=== PATIENT | male | born 1965 | race Hispanic/Latino ===

== ENCOUNTER 2019-03-15 04:04 | Inpatient (IN) | payer OTHER ==
[~2019-03-15] VITALS: Ht 165.1 cm; Wt 71.2 kg
[2019-03-15] MEDS ORDERED: SODIUM CHLORIDE 0.9% 1000ML 1,000 ML IV ONE ×2 (05:15→08:25)
[2019-03-15 05:24] LABS: BASOPHILS % (AUTO) 0.4 % (0.0-5.0); EOSINOPHILS % (AUTO) 0.1 % (0.0-8.0); HEMATOCRIT 22.6 % (42-54); LYMPHOCYTES % (AUTO) 41.2 % (21.0-51.0); MEAN CORPUSCULAR HGB CONC 35.2 g/dL (32.0-36.0); MEAN CORPUSCULAR VOLUME 88.2 fL (79-99); MONOCYTES % (AUTO) 4.2 % (3.0-13.0); NEUTROPHILS % (AUTO) 54.1 % (40.0-77.0); NUCLEATED RED BLOOD CELLS 0.1 % (0.0-0.19); PLATELET COUNT (AUTO) 399 K/uL (130-400); RED BLOOD CELL COUNT(AUTO) 2.56 MIL/uL (4.50-6.20); RED CELL DISTRIBUTION WIDTH 18.1 % (11.0-15.5); WHITE BLOOD COUNT (AUTO) 6.6 K/uL (4.8-10.8)
[2019-03-15 05:37] LABS: CREATININE 1.1 mg/dL (0.5-1.5); POTASSIUM 3.7 mmol/L (3.5-5.1)
[2019-03-15 05:39] LABS: INR 1.04 (0.85-1.15); PARTIAL THROMBOPLASTIN TIME 35.1 SEC (26.3-35.5); PROTHROMBIN TIME 10.9 SEC (9.6-11.6)
[2019-03-15 05:50] LABS: BILIRUBIN,TOTAL 13.5 mg/dL (0.2-1.0); TOTAL PROTEIN, SERUM 5.6 g/dL (6.0-8.3)
[2019-03-15] MEDS: SODIUM CHLORIDE 0.9% 1000ML 1,000 ML IV SCH ×2 (06:44→16:44)
[2019-03-15] MEDS ORDERED: FAMOTIDINE/PF 20 MG/2 ML VIAL IV ONE (08:25)
[2019-03-15] MEDS: FAMOTIDINE/PF 20 MG/2 ML VIAL IV SCH ×2 (09:00→19:56)
[2019-03-15 10:20] LABS: BILIRUBIN,TOTAL 11.1 mg/dL (0.2-1.0)
[2019-03-15 10:42] LABS: ALBUMIN 0.8 g/dL (3.5-5.0); TOTAL PROTEIN, SERUM 4.6 g/dL (6.0-8.3)
[2019-03-15 10:50] LABS: BILIRUBIN,DIRECT 9.7 mg/dL (0.0-0.3)
[2019-03-15 11:52] LABS: % IRON SATURATION 24.5 % (30-44)
[2019-03-15 12:07] LABS: HEMATOCRIT 20.5 % (42-54)
[2019-03-15 12:20] VITALS: BP 123/74
[2019-03-15] MEDS ORDERED: GADODIAMIDE 5 MMOL/10 ML VIAL 5 MMOL/10 ML VIAL IV ONE (12:43)
--- NOTE | 2019-03-15 13:00 | NUR ---
NOTE ARRIVED FROM ER WITH DX CIRRHOSIS, GI BLEED. HIS HGB HAS DROPPED TO 7 AND SOON PATIENT GOT HERE THERE WAS AN ORDER FOR BLOOD TRANSFUSION, WE WILL GET RECORDS FROM [place] AND CONSULTS WITH DR SHAHID HAS BEEN CARRIED OUT. PATIENT JAUNDICE. HE IS POSITIVE FOR HIV. WAS AT A HOSPITAL IN [place] FOR >20 DAYS, WAS DISCHARGED HOME SATURDAY WITH 4 PRESCRIPTIONS AND FAMILY WAS NOT ABLE TO FILL OUT HE CAME IN BECAUSE HE STARTED HAVING BLOODY STOOLS AT HOME FEELS VERY WEAK. FAMILY AT HIS SIDE. NO N/V NO DISTRESS, HE DOES HAVE A LITTLE OF A DRY COUGH BUT CXR IS NEGATIVE AND DOES NOT SEEM IN DISTRESS OTHERWISE. HE HAS NOT BEEN TAKING HIS HIV OR ANY MED FOR THE SAME TOKEN FOR THE LAST 2-3 YEARS.
[2019-03-15] MEDS ORDERED: ATOV750O2 PO (14:01)
[2019-03-15] MEDS ORDERED: AZIT500T PO (14:01)
[2019-03-15] MEDS ORDERED: CEFP200T14 PO (14:01)
[2019-03-15] MEDS ORDERED: PANT40TA25 PO (14:01)
[2019-03-15] MEDS ORDERED: SODIUM CHLORIDE 0.9% 250 ML IV ONE (15:52)
[2019-03-15 16:00] VITALS: BP 108/67
--- NOTE | 2019-03-15 16:45 | NUR ---
NOTE STARTED FIRST OF 2 UNITS OF BLOOD ORDERED PER DR OLIVAS. HE IS TOLERATING WELL REFER TO TRANSFUSION SHEET FOR DETAILS.
[2019-03-15 19:15] VITALS: BP 139/86
[2019-03-15 20:00] VITALS: BP 116/76
[2019-03-15 21:15] VITALS: BP 133/85
[2019-03-16] VITALS (7 sets, daily range): BP systolic 100–120; BP diastolic 65–77
[2019-03-16 01:58] LABS: HEMATOCRIT 25.5 % (42-54)
[2019-03-16] MEDS: SODIUM CHLORIDE 0.9% 1000ML 1,000 ML IV SCH ×3 (02:44→21:35)
[2019-03-16] MEDS: FAMOTIDINE/PF 20 MG/2 ML VIAL IV SCH ×2 (09:05→21:34)
--- NOTE | 2019-03-16 11:35 | NUR ---
INITIAL: Met w pt and mother this am to discuss dcp. Pt states that he recently moved from [place] to [facility] and has not established himself w a pcp. Pt states that he is currently living w his mother. He is independent w ambulation and ADLs. Does not own any equipment. Per pt he was previously receiving medical care from Dr Edwin Resendiz in [place] and would obtain meds via [employer] [phone]. He states that dt his HIV he was enrolled in a program to assist w meds and medical coverage. He states that he is trying to see if those services will still be avail to him now that he has moved to the [place]. Provided him w low income packet and also provided him w contact number for [facility]. CM to continue to follow and wait for Md recommendations. Per pt he feels safe and comfortable to return to his mothers house @ [place]. Addendum: 03/16/19 at 1139 by JENI LEIGH Amended: Links added.
--- NOTE | 2019-03-16 12:15 | NUR ---
RD Notification Patient with rectal bleed, s/p Blood transfusion, pending colonoscopy. Patient NPO pending procedure. When medically feasible, rec to advance diet to Heart Healthy, Soft diet, Christiano BID (secondary to wound healing support). Noted BLE 3+ pitting edema. Patient LBM 03/16/19. Patient monitored labs:Na 130, Cl 100, Ca 7.4, Fe 38, TIBC 155, %sat 24.5, T.Bili 11.1, AST 147, ALT 153, Alk 2862, Alb 0.8. RD to continue to monitor. Please notify RD as nutritional concerns arise. Thank you. Addendum: 03/16/19 at [address] Amended: Links added.
[2019-03-16 13:40] LABS: HEMATOCRIT 21.7 % (42-54)
[2019-03-16] MEDS: FLUCONAZOLE 100 MG TAB PO SCH (14:40)
[2019-03-16 19:36] LABS: HEMATOCRIT 20.3 % (42-54)
--- NOTE | 2019-03-16 22:11 | NUR ---
PENIS PATIENT COMPLAINS OF POSSIBLE INFECTION TO HIS PENIS. ON INSPECTION HE SEEMS TO HAVE A YEAST INFECTION AND SOME SWELLING TO THE AREA, WHICH HE STATES IS BETTER THAN BEFORE. PATIENT IS ON AN ANTIFUNGAL MEDICATION IV AT THIS TIME. WILL NOTIFY MD AT NEXT TIME THEY ROUND.
[2019-03-17 03:46] VITALS: BP 116/69
[2019-03-17 04:16] LABS: BASOPHILS % (AUTO) 0.9 % (0.0-5.0); EOSINOPHILS % (AUTO) 0.1 % (0.0-8.0); LYMPHOCYTES % (AUTO) 23.7 % (21.0-51.0); MEAN CORPUSCULAR HEMOGLOBIN 30.6 pg (27.0-33.0); MEAN CORPUSCULAR HGB CONC 35.2 g/dL (32.0-36.0); MEAN CORPUSCULAR VOLUME 86.8 fL (79-99); MONOCYTES % (AUTO) 6.2 % (3.0-13.0); NEUTROPHILS % (AUTO) 69.1 % (40.0-77.0); NUCLEATED RED BLOOD CELLS 0.1 % (0.0-0.19); PLATELET COUNT (AUTO) 310 K/uL (130-400); RED BLOOD CELL COUNT(AUTO) 2.28 MIL/uL (4.50-6.20); RED CELL DISTRIBUTION WIDTH 16.9 % (11.0-15.5); WHITE BLOOD COUNT (AUTO) 4.9 K/uL (4.8-10.8)
[2019-03-17 04:19] LABS: HEMATOCRIT 19.8 % (42-54)
[2019-03-17 04:26] LABS: POTASSIUM 3.3 mmol/L (3.5-5.1)
[2019-03-17] MEDS ORDERED: SODIUM CHLORIDE 0.9% 250 ML IV ONE (06:21)
[2019-03-17] MEDS ORDERED: POTASSIUM CHLORIDE 10MEQ/100ML 100 ML IV PRN (06:30)
[2019-03-17] MEDS ORDERED: POTASSIUM CHLORIDE 20 MEQ ERTAB PO PRN (06:30)
[2019-03-17] MEDS ORDERED: LIDOCAINE HCL-MPF 1% 2ML VIAL IVP PRN (06:30)
[2019-03-17 07:00] VITALS: BP 114/90
[2019-03-17] MEDS: SODIUM CHLORIDE 0.9% 1000ML 1,000 ML IV SCH ×2 (08:16→18:44)
[2019-03-17] MEDS: FAMOTIDINE/PF 20 MG/2 ML VIAL IV SCH ×2 (08:16→19:34)
[2019-03-17] MEDS ORDERED: FUROSEMIDE 10 MG/ML 2ML VIAL IV SCH ×2 (09:30→11:00)
--- NOTE | 2019-03-17 11:28 | NUR ---
INFO ON [facility] GIVEN Met hien burrell, confirmed pt is jan of [facility] in [place] info on [facility] plan ois to set up appt on discharge for patient, verbal consent [place] [facility] [facility] [place]. CM to follow Addendum: 03/17/19 at 1141 by REGGIE DUTTON RN CM Amended: Links added.
[2019-03-17 11:49] VITALS: BP 123/84
[2019-03-17] MEDS: FLUCONAZOLE 100 MG TAB PO SCH (13:49)
[2019-03-17 14:15] LABS: HEMATOCRIT 32.5 % (42-54)
[2019-03-17 16:40] VITALS: BP 131/89
--- NOTE | 2019-03-17 17:42 | NUR ---
[facility] CONSULT PATIENT ASSESSED ORDERED: PATIENT PRESENTS WITH STAGE II PRESSURE ULCER TO COCCYX; [facility] RECOMMENDATIONS SUBMITTED. Addendum: 03/17/19 at 1745 by CESAR HURTADO LVN LVN W Amended: Links added.
[2019-03-17 19:42] VITALS: BP 140/85
[2019-03-17 20:14] LABS: HEMATOCRIT 28.5 % (42-54)
[2019-03-18] VITALS: BP 103/57
[2019-03-18 04:00] VITALS: BP 117/74
[2019-03-18] MEDS: SODIUM CHLORIDE 0.9% 1000ML 1,000 ML IV SCH (04:02)
[2019-03-18 07:06] LABS: HEMATOCRIT 28.4 % (42-54)
[2019-03-18 07:30] VITALS: BP 116/67
[2019-03-18] MEDS ORDERED: HONEY 1 APPL/ML TUBE TP PRN (08:45)
[2019-03-18] MEDS: FAMOTIDINE/PF 20 MG/2 ML VIAL IV SCH ×2 (09:05→21:20)
--- NOTE | 2019-03-18 10:40 | NUR ---
RECORD RECEIVED AND DR. SHAHID MADE AWARE OF PENDING RECORDS FROM [facility] IN [place]. PER MD, WILL COME IN AND REVIEW RECORD.
[2019-03-18 11:00] VITALS: BP 120/82
[2019-03-18 12:18] LABS: HEMATOCRIT 31.3 % (42-54)
[2019-03-18 13:14] LABS: HEPATITIS B CORE IGM Negative (Negative)
[2019-03-18] MEDS ORDERED: SULFAMETHOX-TMP DS 800/160 TAB PO SCH (14:30)
--- NOTE | 2019-03-18 14:39 | NUR ---
RD Follow up Note Patient tolerating clear liquid diet, pending procedure. RD recommend Christiano BID for wound healing support for Coccyx stg. 2 decubitus ulcer. Noted, patient with 3+ pitting edema. Patient monitored labs: Na 133, K 3.3, CO2 19, Ca 7.2, Fe 38, TIBC 155, %Sat 24.5, Alb 0.8. RD to continue to monitor. Please notify RD as nutritional concerns arise. Thank you. Addendum: 03/18/19 at [address] Amended: Links added.
[2019-03-18] MEDS ORDERED: PHARMACY COMMUNICATION MISC SCH (14:45)
[2019-03-18 16:00] VITALS: BP 122/79
[2019-03-18] MEDS: FLUCONAZOLE 100 MG TAB PO SCH (16:49)
[2019-03-18 18:24] LABS: HEMATOCRIT 29.4 % (42-54)
[2019-03-18 20:35] VITALS: BP 128/83
[2019-03-19] VITALS (40 sets, daily range): BP systolic 84–132; BP diastolic 47–79
[2019-03-19 02:46] LABS: HEMATOCRIT 23.4 % (42-54)
[2019-03-19 06:38] LABS: HEMATOCRIT 22.4 % (42-54)
[2019-03-19] MEDS: FAMOTIDINE/PF 20 MG/2 ML VIAL IV SCH ×2 (08:16→21:00)
[2019-03-19] MEDS: SULFAMETHOX-TMP DS 800/160 TAB PO SCH (08:17)
--- NOTE | 2019-03-19 08:26 | NUR ---
LOW BP/LARGE RED LIQUID STOOL BP NOTED TO BE 95/75 WITH PULSE OF 102. PATIENT AAOX3, STATES DIZZINESS AND WEAKNESS. NOTED PALE JAUNDICE SKIN COLOR. PT HAD LARGE BRIGHT RED LIQUID STOOL. VIKY CHAVARRIA FACETER MADE AWARE; INITIATED 500ML NS BOLUS. WILL TRANSFUSE 1 UNIT OF PRBC AND TRANSFER TO ICU ORDERED.
[2019-03-19] MEDS ORDERED: SODIUM CHLORIDE 0.9% 250 ML IV ONE ×2 (08:29→16:21)
[2019-03-19] MEDS: FLUCONAZOLE 100 MG TAB PO SCH (14:30)
[2019-03-19 14:39] LABS: HEMATOCRIT 20.3 % (42-54)
[2019-03-19] MEDS ORDERED: PEG 3350/NA SULF,BICARB,CL/KCL 4000 ML SOLN PO SCH (17:00)
--- NOTE | 2019-03-19 18:04 | NUR ---
PT HAS HAD AT LEAST 9 STOOLS OF CLOTS OR BLOOD AND V/S DOCUMENTED. DR. SHAHID AND DR. KIM HAVE DISCUSSED THE CASE AND DR. KIM HAS SPOKEN TO PATIENT AND FAMILY MEMBERS (MOTHER AND SISTER) AND ADVISED THEM OF CODE STATUS. PT WAS DNR IN [place] AND DR. KIM WANTS TO INQUIRE IF PT WANTS DNR OR FULL CODE STATUS.
--- NOTE | 2019-03-19 19:00 | NUR ---
DR. SHAHID HERE AND SPOKE WITH PATIENT AND FAMILY IN THE ROOM ABOUT THE PLAN OF CARE.
--- NOTE | 2019-03-19 19:40 | NUR ---
REPORT REPORT GIVEN TO CHELSEA CASTRO CARE ENDORSED
[2019-03-19] MEDS: DEXTROSE 5%-LACTATED RINGERS 1,000 ML IV SCH (21:30)
[2019-03-19] MEDS: PANTOPRAZOLE SODIUM 80 MG in SODIUM CHLORIDE 0.9% 100 ML IV SCH (21:30)
[2019-03-19 21:46] LABS: ABG BASE EXCESS -3.6 mmol/L (-2.0-3.0); ABG HCO3 18.4 mmol/L (21.0-28.0); ABG OXYGEN SATURATION 97.7 % (95.0-99.0); ABG PCO2 26 mmHg (35-48)
[2019-03-19] MEDS ORDERED: FUROSEMIDE 10 MG/ML 2ML VIAL IV SCH (22:00)
[2019-03-19] MEDS: FUROSEMIDE 10 MG/ML 2ML VIAL IV SCH (22:00)
[2019-03-19] MEDS ORDERED: FUROSEMIDE 10 MG/ML 4ML VIAL ONE (22:05)
[2019-03-19 22:13] LABS: BASOPHILS % (AUTO) 0.3 % (0.0-5.0); HEMATOCRIT 24.9 % (42-54); MEAN CORPUSCULAR HEMOGLOBIN 29.8 pg (27.0-33.0); MEAN CORPUSCULAR HGB CONC 34.9 g/dL (32.0-36.0); MEAN CORPUSCULAR VOLUME 85.4 fL (79-99); MONOCYTES % (AUTO) 3.8 % (3.0-13.0); NEUTROPHILS % (AUTO) 71.9 % (40.0-77.0); PLATELET COUNT (AUTO) 192 K/uL (130-400); RED BLOOD CELL COUNT(AUTO) 2.92 MIL/uL (4.50-6.20); RED CELL DISTRIBUTION WIDTH 14.8 % (11.0-15.5); WHITE BLOOD COUNT (AUTO) 6.3 K/uL (4.8-10.8)
[2019-03-19 22:30] LABS: CREATININE 1.3 mg/dL (0.5-1.5); POTASSIUM 3.5 mmol/L (3.5-5.1)
[2019-03-19 22:34] LABS: INR 1.34 (0.85-1.15); PARTIAL THROMBOPLASTIN TIME 42.7 SEC (26.3-35.5)
[2019-03-20] VITALS (39 sets, daily range): BP systolic 80–150; BP diastolic 46–97
[2019-03-20] MEDS ORDERED: SODIUM CHLORIDE 0.9% 500ML 500 ML IV ONE ×2 (03:47→06:39)
[2019-03-20] MEDS: DEXTROSE 5%-LACTATED RINGERS 1,000 ML IV SCH ×3 (03:48→20:38)
[2019-03-20 04:51] LABS: ALBUMIN 0.6 g/dL (3.5-5.0); CREATININE 1.4 mg/dL (0.5-1.5); MAGNESIUM 1.7 mg/dL (1.80-2.40); PHOSPHORUS 4.1 mg/dL (2.5-4.9); POTASSIUM 3.2 mmol/L (3.5-5.1); TOTAL PROTEIN, SERUM 2.7 g/dL (6.0-8.3)
[2019-03-20] MEDS ORDERED: POTASSIUM CHLORIDE 20MEQ/100ML 100 ML IV ONE (05:51)
[2019-03-20] MEDS: PANTOPRAZOLE SODIUM 80 MG in SODIUM CHLORIDE 0.9% 100 ML IV SCH ×2 (06:18→20:50)
[2019-03-20 06:24] LABS: BASOPHILS % (AUTO) 0.3 % (0.0-5.0); LYMPHOCYTES % (AUTO) 29.3 % (21.0-51.0); MEAN CORPUSCULAR HEMOGLOBIN 30.6 pg (27.0-33.0); MEAN CORPUSCULAR HGB CONC 36.1 g/dL (32.0-36.0); MEAN CORPUSCULAR VOLUME 84.9 fL (79-99); MONOCYTES % (AUTO) 5.8 % (3.0-13.0); NEUTROPHILS % (AUTO) 64.6 % (40.0-77.0); NUCLEATED RED BLOOD CELLS 0.1 % (0.0-0.19); PLATELET COUNT (AUTO) 141 K/uL (130-400); RED BLOOD CELL COUNT(AUTO) 1.72 MIL/uL (4.50-6.20); RED CELL DISTRIBUTION WIDTH 14.9 % (11.0-15.5); WHITE BLOOD COUNT (AUTO) 4.9 K/uL (4.8-10.8)
[2019-03-20] MEDS: MAGNESIUM 2GM PREMIX 50ML 50 ML IV PRN (06:24)
[2019-03-20 06:35] LABS: HEMATOCRIT 14.6 % (42-54)
[2019-03-20] MEDS ORDERED: KETAMINE HCL 50MG/ML 10ML VIAL IJ ONE (07:44)
[2019-03-20] MEDS ORDERED: PROPOFOL 1000 MG/100 ML 100 ML IV ONE (07:56)
--- NOTE | 2019-03-20 07:56 | NUR ---
PROPOFOL PROVIDED REQUESTED BY Kavita GANDARA CRNA; FOR COLONOSCOPY PROCEDURE AT BEDSIDE. TO BE INCLUDED IN HIS ANESTHESIA ORDERS.
--- NOTE | 2019-03-20 08:13 | NUR ---
Kaviat GANDARA CRNA, REQUESTING EPINEPHRINE FOR PROCEDURE; TO BE ADDED TO ANESTHESIA ORDERS.
[2019-03-20] MEDS ORDERED: EPINEPHRINE 1 MG/ML AMPULE ONE (08:15)
[2019-03-20 08:17] LABS: HEPATITIS A ANTIBODY IGM Negative (Negative); HEPATITIS Bs ANTIGEN SCREEN P Negative (Negative)
--- NOTE | 2019-03-20 08:45 | NUR ---
RESTING IN BED WITH EYES CLOSED, RESP.'S EVEN AND UNLABORED. OPENS EYES TO VERBAL COMMAND. NRB IN PLACE. CALL LIGHT WITHIN REACH.
[2019-03-20] MEDS: SULFAMETHOX-TMP DS 800/160 TAB PO SCH ×2 (09:00→16:50)
[2019-03-20] MEDS: FAMOTIDINE/PF 20 MG/2 ML VIAL IV SCH ×2 (09:00→20:39)
--- NOTE | 2019-03-20 09:30 | NUR ---
CONT.'S RESTING IN BED. EYES CLOSED. EASILY AROUSABLE BUT CLOSES EYES AGAIN AFTER QUESTIONS ANSWERED. CALL LIGHT WITHIN REACH.
[2019-03-20 10:11] LABS: HEMATOCRIT 24.8 % (42-54)
--- NOTE | 2019-03-20 12:00 | NUR ---
2ND UNIT PRBC COMPLETED. PT. W/O C/O. FAMILY MEMBERS AT BEDSIDE. CALL LIGHT WITHIN REACH.
--- NOTE | 2019-03-20 12:03 | NUR ---
DR. KIM IN ROOM SPEAKING WITH PT. RE:COLONOSCOPY FINDINGS AND EXPLAINING PLAN OF CARE TO PT. AND FAMILY MEMBERS AT BEDSIDE; PT. VERBALIZED UNDERSTANDING. QUESTIONS ANSWERED BY DR. KIM.
[2019-03-20] MEDS: FLUCONAZOLE 100 MG TAB PO SCH (14:03)
--- NOTE | 2019-03-20 16:00 | NUR ---
RESTING IN BED. CONVERSING WITH FAMILY MEMBERS AT BEDSIDE. CALL LIGHT WITHIN REACH.
[2019-03-20] MEDS: POTASSIUM CHLORIDE 10% ELIXIR 20 MEQ/15 ML UDCUP PO PRN (16:51)
[2019-03-20] MEDS: FUROSEMIDE 10 MG/ML 2ML VIAL IV SCH (20:33)
[2019-03-20] MEDS ORDERED: ACETAMINOPHEN 325 MG TAB PO PRN (21:00)
[2019-03-21] VITALS (25 sets, daily range): BP systolic 56–138; BP diastolic 30–85
[2019-03-21 03:46] LABS: INR 1.32 (0.85-1.15); PARTIAL THROMBOPLASTIN TIME 41.2 SEC (26.3-35.5); PROTHROMBIN TIME 13.8 SEC (9.6-11.6)
[2019-03-21 03:56] LABS: ALBUMIN 0.7 g/dL (3.5-5.0); BILIRUBIN,TOTAL 13.1 mg/dL (0.2-1.0); CREATININE 1.1 mg/dL (0.5-1.5); MAGNESIUM 1.5 mg/dL (1.80-2.40); POTASSIUM 3.3 mmol/L (3.5-5.1); TOTAL PROTEIN, SERUM 3.4 g/dL (6.0-8.3)
[2019-03-21] MEDS: POTASSIUM CHLORIDE 10% ELIXIR 20 MEQ/15 ML UDCUP PO PRN ×2 (05:27→08:19)
[2019-03-21] MEDS: MAGNESIUM 2GM PREMIX 50ML 50 ML IV PRN (05:28)
[2019-03-21] MEDS: DEXTROSE 5%-LACTATED RINGERS 1,000 ML IV SCH ×6 (05:28→21:11)
[2019-03-21 06:17] LABS: HEMATOCRIT 23.4 % (42-54); MEAN CORPUSCULAR HEMOGLOBIN 29.6 pg (27.0-33.0); MEAN CORPUSCULAR HGB CONC 34.6 g/dL (32.0-36.0); MEAN CORPUSCULAR VOLUME 85.7 fL (79-99); NUCLEATED RED BLOOD CELLS 0.1 % (0.0-0.19); PLATELET COUNT (AUTO) 153 K/uL (130-400); RED BLOOD CELL COUNT(AUTO) 2.73 MIL/uL (4.50-6.20); RED CELL DISTRIBUTION WIDTH 14.8 % (11.0-15.5); WHITE BLOOD COUNT (AUTO) 7.4 K/uL (4.8-10.8)
[2019-03-21] MEDS: FAMOTIDINE/PF 20 MG/2 ML VIAL IV SCH ×2 (07:27→20:14)
[2019-03-21] MEDS: SULFAMETHOX-TMP DS 800/160 TAB PO SCH (08:18)
--- NOTE | 2019-03-21 09:12 | NUR ---
Evy MCLAUGHLIN.Lorenza, SPOKE WITH DR. TIDWELL VIA TELEPHONE WHO STATES LIVER BIOPSY TO BE DONE ON SATURDAY. "LIVER BIOPSIES NOT DONE ON S."
--- NOTE | 2019-03-21 10:05 | NUR ---
Luis JIM, WATER TENDER, IN ROOM SPEAKING WITH PT. RE:PLAN OF CARE. WATER TENDER MADE AWARE RE:ST-120'S-130'S, MEDICATION REGIMEN AND VS TREND; VERBALIZED UNDERSTANDING AND ORDERS RECEIVED.
[2019-03-21 10:34] LABS: HEMATOCRIT 28.4 % (42-54)
[2019-03-21] MEDS: PANTOPRAZOLE SODIUM 80 MG in SODIUM CHLORIDE 0.9% 100 ML IV SCH ×2 (10:34→21:12)
[2019-03-21] MEDS: METOPROLOL TARTRATE 25 MG TAB PO SCH ×2 (10:34→21:00)
--- NOTE | 2019-03-21 13:02 | NUR ---
DR. NASCIMENTO IN ROOM SPEAKING WITH PT. RE:PLAN OF CARE. MADE AWARE RE:SINUS TACHYCARDIA-143, CURRENT MEDICATION REGIMEN AND VS TREND, ORDERS RECEIVED.
[2019-03-21] MEDS: FLUCONAZOLE 100 MG TAB PO SCH (13:17)
--- NOTE | 2019-03-21 13:27 | NUR ---
DR. Krishna WILSON IN ROOM SPEAKING WITH PT. DR. WILSON MADE AWARE RE:ST-140, CURRENT MEDICATIONS REGIMEN AND VS TREND, WELL ORDERS RECEIVED FROM DR. NASCIMENTO; VERBALIZED UNDERSTANDING.
--- NOTE | 2019-03-21 17:24 | NUR ---
PAGED DR. All GALEANA TO NOTIFY RE:PT.'S C/O BLOATING AND ABD CRAMPING; AWAITING RESPONSE.
[2019-03-21] MEDS ORDERED: SIMETHICONE 80 MG TAB.CHEW ONE (18:12)
[2019-03-21] MEDS ORDERED: SIMETHICONE 80 MG TAB.CHEW PO PRN (18:15)
[2019-03-21 18:16] LABS: HEMATOCRIT 23.8 % (42-54)
[2019-03-21] MEDS ORDERED: OCTREOTIDE ACETATE 500 MCG in SODIUM CHLORIDE 0.9% 97.5 ML IV PRN (19:30)
[2019-03-21] MEDS ORDERED: MORPHINE SULFATE 4 MG/1ML SYG ONE (20:11)
[2019-03-21] MEDS ORDERED: MORPHINE SULFATE 4 MG/1ML SYG IV PRN (20:30)
[2019-03-21] MEDS ORDERED: MORPHINE SULFATE 2 MG/ML 1ML SYG IV SCH (20:45)
--- NOTE | 2019-03-21 21:00 | NUR ---
MD CALLED PT OPTED FOR THE DNR STATUS, REFUSED TO RECEIVE ANOTHER BLOOD TRANSFUSION. SIGNED THE DNR PAPER, REST OF THE FAMILY MEMBERS IN AGREEMENT. DR. GALEANA CALLED TO COME AND SEE THE PT AND FAMILY. INITIAL ORDER TO CONSULT GI D/C, TO CONTINUE WITH THE SANDOSTATIN DRIP, PROTONIX DRIP WELL THE IV INFUSION PREVIOUSLY ORDERED. ORDERED 4 MG OF MORPHINE FOR PAIN AND TO START PT ON MORPHINE 2 MG PER HOUR FOR COMFORT MEASURES. TO CONSULT DR. BERNARDO IN AM FOR HOSPICE CARE.
[2019-03-21] MEDS: FUROSEMIDE 10 MG/ML 2ML VIAL IV SCH (22:00)
--- NOTE | 2019-03-21 23:55 | NUR ---
UPDATED DR. GALEANA ON THE PHONE, UPDATED WITH PT'S OVERALL STATUS AND OK'D TO TRANSFER PT TO PCCU FOR ANOTHER LEVEL OF CARE.
[2019-03-22] VITALS: BP 63/31
--- NOTE | 2019-03-22 00:20 | NUR ---
PT FLAT LINE ON THE ECG AT 0020, DIRECTOR OF CLINICAL SERVICES JUN CAME TO PRONOUNCE THE PT. DR. GALEANA MADE AWARE, POST MORTEM CARE DONE. MONIK CALLED. FAMILY ALREADY WITH A PARLOR IN MIND. CONCERNS ADDRESSED.
[2019-03-22 00:30] VITALS: BP 0/0
--- NOTE | 2019-03-22 00:30 | NUR ---
PRONOUNCEMENT SUMMONED BY STAFF TO PATIENT'S ROOM. FAMILY MEMBERS AT BEDSIDE. NO BREATH SOUNDS, HEART TONES OR BLOOD PRESSURE AUDIBLE ON AUSCULTATION. MODEL MAKER APPRENTICE REVEALS ASYSTOLE. PUPILS FIXED AND DILATED. TIME OF : 29.
[2019-03-24 18:09] LABS: HERPES SIMPLEX VIRUS-1 BY PCR Negative (Negative); HERPES SIMPLEX VIRUS-2 BY PCR Negative (Negative)
== END 2019-03-22 00:30 | disposition expired | DRG 377 ==
LOC: EDH 04:04 → EDHIP 04:05 → 4AH 12:18 → 2BH 03-19 11:00
PROVIDERS: ADMIT Hospitalist; ATTEND Hospitalist
PROC: 0DBK8ZX Excision of Ascending Colon, Via Natural or Artificial Opening Endoscopic, Diagnostic (ICD-10-PCS; principal; 2019-03-20)
PROC: 0W3P8ZZ Control Bleeding in Gastrointestinal Tract, Via Natural or Artificial Opening Endoscopic (ICD-10-PCS; 2019-03-20)
PROC: 30233N1 Transfusion of Nonautologous Red Blood Cells into Peripheral Vein, Percutaneous Approach (ICD-10-PCS; 2019-03-20)
DX: K62.5 Hemorrhage of anus and rectum (principal); E43 Unspecified severe protein-calorie malnutrition; K83.1 Obstruction of bile duct; B20 Human immunodeficiency virus [HIV] disease; D62 Acute posthemorrhagic anemia; E87.1 Hypo-osmolality and hyponatremia; K63.3 Ulcer of intestine; B37.0 Candidal stomatitis; R18.8 Other ascites; E87.6 Hypokalemia; I10 Essential (primary) hypertension; K76.0 Fatty (change of) liver, not elsewhere classified; K82.8 Other specified diseases of gallbladder; Z91.19 Patient's noncompliance with other medical treatment and regimen; Z68.26 Body mass index [BMI] 26.0-26.9, adult
CPT/HCPCS: 36415; 36430; 36600; 71045; 74183; 80048; 80053; 80076; 82103; 82105; 82390; 82550; 82803; 83010; 83516; 83540; 83550; 83615; 83630; 83735; 84100; 84484; 85014; 85018; 85025; 85027; 85610; 85730; 86038; 86215; 86235; 86255; 86359; 86360; 86361; 86644; 86645; 86665; 86704; 86705; 86706; 86708; 86709; 86850; 86900; 86901; 86922; 87177; 87324; 87328; 87340; 87507; 87520; 87529; 87536; 87900; 87901; 93005; A9579; C9113; G0378; J0171; J1940; J2270; J2704; J3475; J3480; J3490; J7030; J7040; P9016